=== PATIENT | female | born 1960 | race Caucasian/White ===

== ENCOUNTER 2017-02-01 21:39 | Emergency (ER) | payer MEDICARE, MEDICAID ==
[~2017-02-01] VITALS: Ht 167.6 cm; Wt 91.6 kg
[2017-02-01 21:39] VITALS: BP 125/81
[~2017-02-01 21:39] MED LIST: AMOX1TAB58 PO
[2017-02-01] MEDS ORDERED: AMOX500C PO (22:07)
--- NOTE | 2017-02-01 22:07 | PHYS DOC ---
Past History Past Medical History: Bronchitis, Other Additional Past Medical Histor: dental infections and poor dentition Past Surgical History: Cholecystectomy, Hysterectomy Smoking: Cigarettes Alcohol Use: None Drug Use: None Adult General Chief Complaint Chief Complaint: FACE PAIN HPI HPI Patient is a 56 year old female who presents with left upper jaw pain. Patient has very poor dentition with chronic infections in the past. She states her left upper jaw/face area started hurting this today. She does still smoke tobacco. She states 2 of her teeth are "black". She has no difficulty swallowing , no drooling. No fever. Her left ear and sinus rhythm as well. Review of Systems Review of Systems Constitutional: Denies fever or chills Eyes: Denies change in visual acuity, redness, or eye pain HENT: Denies nasal congestion or sore throat . See HPI Respiratory: Denies cough or shortness of breath Integument: Denies rash or skin lesions Allergies Allergies Allergies Coded Allergies Type Severity Reaction Last Updated Verified No Known Drug Allergies 05/15/15 No Physical Exam Physical Exam Constitutional: Well developed, well nourished, no acute distress, non-toxic appearance. HENT: Normocephalic, atraumatic, bilateral external ears normal, oropharynx moist, no oral exudates, nose normal. Very poor dentition. Missing all her left upper molars. She has extensive decay of her left upper lateral incisors. No periapical swelling or drainage. No drooling; no trismus. Neck: Normal range of motion, no tenderness, supple, no stridor. Cardiovascular:Heart rate regular rhythm, no murmur Lungs & Thorax: Bilateral breath sounds clear to auscultation Current Patient Data Vital Signs P 86, T 98.2, sat 97%, BP 125/81 Course & Med Decision Making Course & Med Decision Making Will treat with amoxicillin for dental infection and tramadol for pain. [facility]TRACS show no recent narcotic Rx. Referral to dentist for follow up. Tobacco cessation counseling provided. Toradol IM given here. Dragon Disclaimer Dragon Disclaimer This chart was dictated in whole or in part using Voice Recognition software in a busy, high-work load, and often noisy Emergency Department environment. It may contain unintended and wholly unrecognized errors or omissions. Departure Departure: Impression: Primary Impression: Pain, dental Disposition: 01 HOME, SELF-CARE Condition: GOOD Referrals: JAGUAR RICE DO (PCP) Patient Instructions: Dental Pain, [id number] Scripts Amoxicillin (AMOXICILLIN) 500 Mg Capsule 1 CAP PO TID, #30 CAP Prov: KEVYN GARCIA MD 02/01/17 KEVYN GARCIA MD Feb 01, 2017 22:07
[2017-02-01] MEDS ORDERED: KETOROLAC 60 MG/2 ML VIAL. IM ONE (22:15)
== END 2017-02-01 22:21 | disposition home or self-care (01) ==
LOC: ER 21:39
DX: K08.89 Other specified disorders of teeth and supporting structures (principal); F17.210 Nicotine dependence, cigarettes, uncomplicated
CPT/HCPCS: 96372; 99283; J1885